=== PATIENT | female | born 1985 | race Two or more races ===

== ENCOUNTER 2024-10-08 00:55 | Observation (INO) | payer MEDICAID, OTHER ==
[~2024-10-08] VITALS: Ht 177.8 cm; Wt 94.7 kg
[2024-10-08] VITALS (7 sets, daily range): BP systolic 131–151; BP diastolic 69–92; PULSE 90–97; RESP 16–17; TEMP 98.5–98.7; O2SAT 98–100
--- NOTE | 2024-10-08 02:07 | ED.PDOC ---
History of Present Illness HPI Comments 39-year-old female at 35 weeks presents with chest pain, shortness of breath, and hypertension that began earlier today. Patient reports she went to [facility] where she was told she has preeclampsia. At that hospital she was given IV labetalol was discharged and told to come straight to [facility]. Patient denies any fever chills nausea vomiting diarrhea dysuria or polyuria. Chief Complaint: Flu like Time Seen by MD: 01:23 Reviewed Notes: Nurses Notes Allergies: Coded Allergies: NO KNOWN ALLERGIES (Unverified , 10/08/24) Information Source: Patient Mode of Arrival: Wheelchair Past Medical History PAST MEDICAL HISTORY: Denies Surgical History: Denies all surgeries STITCH BONDING MACHINE TENDER History: No Pertinent STITCH BONDING MACHINE TENDER History Respiratory: reports: shortness of breath Cardiovascular: reports: chest pain All Other Systems: Reviewed and Negative Physical Exam General Appearance: No Apparent Distress, Normal HEENT: Normal ENT Inspection, Pharynx Normal, TMs Normal Neck: Full Range of Motion, Non-Tender, Normal, Normal Inspection Respiratory: Chest Non-Tender, Lungs Clear, No Accessory Muscle Use, No Respiratory Distress, Normal Breath Sounds Cardiovascular: No Edema, No JVD, No Murmur, No Gallop, Normal Peripheral Pulses, Regular Rate/Rhythm Breast Exam: Deferred Gastrointestinal: No Organomegaly, Non Tender, No Pulsatile Mass, Normal Bowel Sounds, Soft, Other (Gravid abdomen) Genitalia: Deferred Pelvic: Deferred Rectal: Deferred Extremities: No calf tenderness, Normal capillary refill, Normal inspection, Normal range of motion, Non-tender, No pedal edema Musculoskeletal : Apperance: Normal Neurologic: Alert, cap inspector II-XII nml as Tested, No Motor Deficits, Normal Affect, Normal Mood, No Sensory Deficits Cerebellar Function: NOT DONE Reflexes: NOT DONE Skin: Dry, Normal Color, Warm Lymphatic: No Adenopathy Was a procedure done? Was a procedure done?: No Differential Dx Considerations may include: Preeclampsia, heart failure X-Ray, Labs, Meds, VS Vital Signs Date Time Temp Pulse Resp B/P (MAP) Pulse Ox O2 Delivery O2 Flow Rate FiO2 10/08/24 02:09 99.1 90 16 133/81 (98) 100 99.1 10/08/24 01:08 98.5 88 16 121/75 (90) 100 Lab Test 10/08/24 02:14 Range/Units White Blood Count 11.5 H 4.4-10.8 10^3/uL Red Blood Count 3.64 L 4.0-5.20 10^6/uL Hemoglobin 6.9 *L 12.2-16.2 g/dL Hematocrit 23.6 L 36.0-46.0 % Mean Corpuscular Volume 64.7 L 80.0-100.0 fL Mean Corpuscular Hemoglobin 18.8 L 28.0-32.0 pg Mean Corpuscular Hemoglobin Concent 29.1 L 32.0-36.0 g/dL Red Cell Distribution Width 20.5 H 11.8-14.3 % Platelet Count 302 140-450 10^3/uL Mean Platelet Volume 8.2 6.9-10.8 fL Neutrophils (%) (Auto) 74.5 37.0-80.0 % Lymphocytes (%) (Auto) 18.5 10.0-50.0 % Monocytes (%) (Auto) 5.5 0.0-12.0 % Eosinophils (%) (Auto) 0.8 0.0-7.0 % Basophils (%) (Auto) 0.7 0.0-2.0 % Neutrophils # (Auto) 8.6 1.6-8.6 10 ^3/uL Lymphocytes # (Auto) 2.1 0.4-5.4 10 ^3/uL Monocytes # (Auto) 0.6 0-1.3 10 ^3/uL Eosinophils # (Auto) 0.1 0-0.8 10 ^3/uL Basophils # (Auto) 0.1 0-0.2 10 ^3/uL Nucleated Red Blood Cells 1.3 % Platelet Estimate Adequate Hypochromasia (manual) Moderate Anisocytosis (manual) Slight Microcytosis Moderate Sodium Level 140 136-145 mmol/L Potassium Level 3.9 3.5-5.1 mmol/L Chloride Level 111 H 98-107 mmol/L Carbon Dioxide Level 20 20-31 mmol/L Anion Gap 9 5-15 Blood Urea Nitrogen 11 9-23 mg/dL Creatinine 0.67 0.550-1.02 mg/dL Glomerular Filtration Rate Calc 115 >90 mL/min BUN/Creatinine Ratio 16.4 10.0-20.0 Serum Glucose 91 74-106 mg/dL Calcium Level 9.0 8.7-10.4 mg/dL Total Bilirubin 0.4 0.2-1.0 mg/dL Aspartate Amino Transferase (AST) 10 L 13-40 U/L Alanine Aminotransferase (ALT) 10 7-40 U/L Alkaline Phosphatase 157 H 46-116 U/L Troponin I High Sensitivity 7 </=34 ng/L B-Type Natriuretic Peptide 232.41 0-100 pg/mL Total Protein 6.2 5.7-8.2 g/dL Albumin 3.9 3.2-4.8 g/dL Time of 1ST Reevaluation: 05:11 Reevaluation 1ST: Unchanged 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 Patient Education/Counseling: Diagnosis, Treatment Family Education/Counseling: No Family Present Departure 1 Departure Time of Disposition: 05:11 (Patient was cleared by me for transfer to our OB floor.) Impression: Primary Impression: Preeclampsia Qualified Codes: O14.93 - Unspecified pre-eclampsia, third trimester Additional Impressions: Chest pain Qualified Codes: R07.89 - Other chest pain Qualified Codes: Z3A.35 - 35 weeks gestation of Disposition: 02 SHORT TERM HOSPITAL Condition: Serious Critical Care Note Critical Care Time?: No Stability Stability form required: No Heart Score Heart Score: Heart Score Response (Comments) Value History N/A 0 EKG N/A 0 Age N/A 0 Risk Factors N/A 0 Troponin N/A 0 Total 0 LOLY GOTTLIEB MD Oct 08, 2024 02:07
[2024-10-08 02:37] LABS: Basophils # (auto) 0.1 10 ^3/uL (0-0.2); Hematocrit 23.6 % (36.0-46.0); Lymphocytes # (auto) 2.1 10 ^3/uL (0.4-5.4); Mean Corpuscular Hemoglobin 18.8 pg (28.0-32.0); Mean Corpuscular Hgb Conc. 29.1 g/dL (32.0-36.0); Mean Corpuscular Volume 64.7 fL (80.0-100.0); Monocytes # (auto) 0.6 10 ^3/uL (0-1.3); Monocytes % (auto) 5.5 % (0.0-12.0); Neutrophils # (auto) 8.6 10 ^3/uL (1.6-8.6); Red Blood Cells 3.64 10^6/uL (4.0-5.20)
[2024-10-08 02:39] LABS: Basophils % (auto) 0.7 % (0.0-2.0); Eosinophils # (auto) 0.1 10 ^3/uL (0-0.8); Eosinophils % (auto) 0.8 % (0.0-7.0); Lymphocytes % (auto) 18.5 % (10.0-50.0); Neutrophils % (auto) 74.5 % (37.0-80.0); Nucleated Red Blood Cells % 1.3 %; Platelet Count (auto) 302 10^3/uL (140-450); White Blood Cell 11.5 10^3/uL (4.4-10.8)
[2024-10-08 02:47] LABS: Red Cell Distribution Width 20.5 % (11.8-14.3)
[2024-10-08 02:48] LABS: Hemoglobin 6.9 g/dL (12.2-16.2)
[2024-10-08 02:57] LABS: Alanine Aminotransferase 10 U/L (7-40); Albumin 3.9 g/dL (3.2-4.8); Anion Gap 9 (5-15); BUN/Creatinine Ratio 16.4 (10.0-20.0); Bilirubin, Total 0.4 mg/dL (0.2-1.0); Blood Urea Nitrogen 11 mg/dL (9-23); Carbon Dioxide 20 mmol/L (20-31); Glucose 91 mg/dL (74-106); Potassium 3.9 mmol/L (3.5-5.1); Sodium 140 mmol/L (136-145); Total Protein 6.2 g/dL (5.7-8.2)
[2024-10-08 03:05] LABS: Alkaline Phosphatase 157 U/L (46-116); Aspartate Aminotransferase 10 U/L (13-40); Chloride 111 mmol/L (98-107)
[2024-10-08 04:18] LABS: Platelet Estimate Adequate
[2024-10-08 04:19] LABS: Anisocytosis Slight; Hypochromia Moderate
[2024-10-08 05:09] LABS: Amphetamine Screen, Urine Neg (NEGATIVE); Barbiturate Scree,Urine Neg (NEGATIVE); Benzodiazephine Screen, Urine Neg (NEGATIVE); Cocaine Screen, Urine Neg (NEGATIVE); Opiate Scree,Urine Neg (NEGATIVE)
[2024-10-08 05:10] LABS: Cannabinoid Screen, Urine Neg (NEGATIVE); Phencyclidine Screen, Urine Neg (NEGATIVE)
[2024-10-08 05:25] LABS: COVID19 ANTIGEN SOFIA FIA NEGATIVE (NEGATIVE); Rapid Influenza A Negative (Negative); Rapid Influenza B Negative (Negative)
[2024-10-08 05:33] LABS: Urine Bacteria FEW /hpf (None Seen); Urine Blood Negative /uL (Negative); Urine Clarity Clear (Clear); Urine Color Yellow (Yellow); Urine Mucus FEW (None Seen); Urine Protein, UAD 1+ (Negative); Urine Specific Gravity 1.026 (1.001-1.035); Urine Squamous Epithelial Cell FEW /hpf (<5); Urine Urobilinogen Normal (Negative); Urine WBC 15 /hpf (0 - 5)
[2024-10-08] MEDS: ceFAZolin 1GM/50ML 50 ML IV ONE (06:10)
[2024-10-08 06:34] LABS: Protein, Urine 83.4 mg/dL (1-14)
[2024-10-08 06:36] LABS: Creatinine, Urine 167.47 mg/dL (30.0-125.0); Urine Protein/Creatinine Ratio 0.5
--- NOTE | 2024-10-08 15:48 | DVHDS2 ---
Physician Discharge Progress N Final Diagnosis: pih ruled out anemia s/p blood transfusion Operations or Procedures: Operations or Procedures nst,sono,labs,blood transfusion Condition on Discharge: Good Disposition: Home Discharge Instructions: Diet: Regular Activity: No Restrictions, As Tolerated Medications: na Follow Up Care: Specialist: 2d Discharge Statement: "Patient was advised to return to the ER or call 911 if any headaches, dizziness, shortness of breath, chest pain, abdominal pain, bleeding, fevers, or worsening of medical condition. Patient was counseled about treatment plan, medications, possible side effects, patientverbalized understanding. All questions were answered to the best of my ability. This discharge took greater then 30 minutes in planning, reviewing documentation, counseling the patient, and discussing with other team members." NIKHIL POSADAS DO Oct 08, 2024 15:48
[2024-10-09] MEDS ORDERED: FERR1TAB36 PO (05:29)
== END 2024-10-08 14:45 | disposition home or self-care (01) ==
LOC: ER 00:55 → LDRP 02:15 → EDBD 02:15
PROVIDERS: ADMIT Obstetrics & Gynecology; ATTEND Obstetrics & Gynecology
DX: O99.013 Anemia complicating pregnancy, third trimester (principal); Z20.822 Contact with and (suspected) exposure to COVID-19; D64.9 Anemia, unspecified; O14.93 Unspecified pre-eclampsia, third trimester; O13.3 Gestational [pregnancy-induced] hypertension without significant proteinuria, third trimester; O26.893 Other specified pregnancy related conditions, third trimester; R07.89 Other chest pain; R06.02 Shortness of breath; Z98.890 Other specified postprocedural states; Z79.899 Other long term (current) drug therapy; Z3A.35 35 weeks gestation of pregnancy
CPT/HCPCS: 36415; 36430; 59025; 80053; 80307; 81001; 82570; 83880; 84156; 84484; 85025; 86850; 86900; 86901; 86920; 87426; 87804; 94760; 96361; 96365; 99284; G0378; J0690; J7030; J7120; P9016; 96360

== ENCOUNTER 2024-10-09 00:01 | Observation (INO) | payer MEDICAID ==
[~2024-10-09] VITALS: Ht 167.6 cm; Wt 95.3 kg
--- NOTE | 2024-10-09 00:24 | ED.PDOC ---
History of Present Illness HPI Comments 39-year-old female with PMHx HTN, Anemia brought in by EMS presents with a chief complaint of chest pain and SOB. Patient reports that she is currently 35 weeks , . Patient mentions that she is feeling chest pain in her sternal region, non-radiating, and describes as tightness, and reports that it feels difficult to breath. Patient was hypertensive per EMS at 165/95 on arrival to ER. Patient appears pale in color. Patient mentions that she sees Dr. Goins as her REFINING SUPERVISOR and last saw her today. Patient reports that she so far has not had any issues with her nor her previous pregnancies. Chief Complaint: Chest Pain Time Seen by MD: 00:18 Reviewed Notes: Medications, Allergies Allergies: Coded Allergies: Avocado (Verified Allergy, Severe, ANAPHYLACTIC REACTION AND ANGIOEDEMA, 10/08/24) Latex (Verified Allergy, Mild, RASH, 10/08/24) Home Meds No Active Prescriptions or Reported Meds Information Source: Patient Mode of Arrival: EMS Severity: Moderate Timing: Hours Duration: Since onset Prehospital treatment: None Past Medical History PAST MEDICAL HISTORY: Anemia, HTN Surgical History: Denies all surgeries FARM REPORTER History: No Pertinent FARM REPORTER History Family History Family History: Reviewed,noncontributory to illness Social History Smoker: Non-Smoker Alcohol: Denies ETOH Use Drugs: Denies Drug Use Lives In: Home Constitutional: denies: chills, diaphoresis, fatigue, fever, malaise, sweats, weakness, others EENTM: denies: blurred vision, double vision, ear bleeding, ear discharge, ear drainage, ear pain, ear ringing, eye pain, eye redness, hearing loss, mouth pain, mouth swelling, nasal discharge, nose bleeding, nose congestion, nose pain, photophobia, tearing, throat pain, throat swelling, voice changes, others Respiratory: reports: shortness of breath; denies: cough, hemoptysis, orthopnea, SOB at rest, SOB with excertion, stridor, wheezing, others Cardiovascular: reports: chest pain; denies: dizzy spells, diaphoresis, Dyspnea on exertion, edema, irregular heart beat, left arm pain, lightheadedness, palpitations, PND, syncope, others Gastrointestinal: denies: abdomen distended, abdominal pain, blood streaked bowels, constipated, diarrhea, dysphagia, difficulty swallowing, hematemesis, melena, nausea, poor appetite, poor fluid intake, rectal bleeding, rectal pain, vomiting, others Genitourinary: reports: ; denies: abnormal vagina bleeding, burning, dyspareunia, dysuria, flank pain, frequency, hematuria, incontinence, pain, vagina discharge, urgency, others Neurological: denies: dizziness, fainting, headache, left sided numbness, left sided weakness, numbness, paresthesia, pre-existing deficit, right sided numbness, right sided weakness, seizure, speech problems, tingling, tremors, weakness, others Musculoskeletal: denies: back pain, gout, joint pain, joint swelling, muscle pain, muscle stiffness, neck pain, others Integumetry: denies: bruises, change in color, change in hair/nails, dryness, laceration, lesions, lumps, rash, wounds, others Allergic/Immunocompromised: denies: Difficulty Healing, Frequent Infections, Hives, Itching, others Hematologic/Lymphatic: denies: anemia, blood clots, easy bleeding, easy bruising, swollen glands, others Endocrine: denies: excessive hunger, excessive sweating, excessive thirst, excessive urination, flushing, intolerance to cold, intolerance to heat, unexplained weight gain, unexplained weight loss, others Psychiatric: denies: anxiety, bipolar disorder, depression, hopeless, panic disorder, schizophrenia, sleepless, suicidal, others All Other Systems: Reviewed and Negative Physical Exam General Appearance: Mild Distress, Normal, Other (PALE IN COLOR) HEENT: Normal ENT Inspection, Pharynx Normal, TMs Normal Neck: Full Range of Motion, Non-Tender, Normal, Normal Inspection Respiratory: Chest Non-Tender, Lungs Clear, No Accessory Muscle Use, No Respiratory Distress, Normal Breath Sounds Cardiovascular: No Edema, No JVD, No Murmur, No Gallop, Normal Peripheral Pulses, Regular Rate/Rhythm Breast Exam: Deferred Gastrointestinal: Other (ABDOMEN GRAVID) Genitalia: Deferred Pelvic: Deferred Rectal: Deferred Extremities: No calf tenderness, Normal capillary refill, Normal inspection, Normal range of motion, Non-tender, No pedal edema Musculoskeletal : Apperance: Normal Neurologic: Alert, brick grader II-XII nml as Tested, No Motor Deficits, Normal Affect, Normal Mood, No Sensory Deficits Cerebellar Function: Normal Reflexes: Normal Skin: Dry, Normal Color, Warm Lymphatic: No Adenopathy Was a procedure done? Was a procedure done?: No Differential Dx Considerations may include: preeclampsia, eccalmpsia, PE, acs, anxiety, anemia, ptx, HELLP X-Ray, Labs, Meds, VS Vital Signs Date Time Temp Pulse Resp B/P (MAP) Pulse Ox O2 Delivery O2 Flow Rate FiO2 10/09/24 00:17 98.7 105 16 165/95 (118) 98 Lab Test 10/09/24 00:51 Range/Units White Blood Count 12.9 H 4.4-10.8 10^3/uL Red Blood Count 4.14 4.0-5.20 10^6/uL Hemoglobin 8.8 #L 12.2-16.2 g/dL Hematocrit 28.7 #L 36.0-46.0 % Mean Corpuscular Volume 69.2 #L 80.0-100.0 fL Mean Corpuscular Hemoglobin 21.4 L 28.0-32.0 pg Mean Corpuscular Hemoglobin Concent 30.9 L 32.0-36.0 g/dL Red Cell Distribution Width 26.5 H 11.8-14.3 % Platelet Count 259 140-450 10^3/uL Mean Platelet Volume 7.3 6.9-10.8 fL Neutrophils (%) (Auto) 77.7 37.0-80.0 % Lymphocytes (%) (Auto) 15.2 10.0-50.0 % Monocytes (%) (Auto) 5.8 0.0-12.0 % Eosinophils (%) (Auto) 0.8 0.0-7.0 % Basophils (%) (Auto) 0.5 0.0-2.0 % Neutrophils # (Auto) 10.0 H 1.6-8.6 10 ^3/uL Lymphocytes # (Auto) 2.0 0.4-5.4 10 ^3/uL Monocytes # (Auto) 0.7 0-1.3 10 ^3/uL Eosinophils # (Auto) 0.1 0-0.8 10 ^3/uL Basophils # (Auto) 0.1 0-0.2 10 ^3/uL Nucleated Red Blood Cells 0.6 % Prothrombin Time Pending Prothrombin Time INR Pending Activated Partial Thromboplast Time Pending Sodium Level Pending Potassium Level Pending Chloride Level Pending Carbon Dioxide Level Pending Anion Gap Pending Blood Urea Nitrogen Pending Creatinine Pending Glomerular Filtration Rate Calc Pending BUN/Creatinine Ratio Pending Serum Glucose Pending Calcium Level Pending Magnesium Lvl (Mg Sulfate Therapy) Pending Total Bilirubin Pending Aspartate Amino Transferase (AST) Pending Alanine Aminotransferase (ALT) Pending Alkaline Phosphatase Pending Troponin I High Sensitivity Pending Total Protein Pending Albumin Pending Time of 1ST Reevaluation: 00:48 Reevaluation 1ST: Unchanged Consultation: account executive agribusiness (i consulted L/D charge and Dr Goins) Patient Education/Counseling: Diagnosis, Treatment, Prognosis Family Education/Counseling: No Family Present Additional Information i reviewed the medical record from earlier and reviewed the lab results from yesterday. i also spoke to EMT, communicated with medical personnel about treatments, and consulted L/D and Dr Goins. pt will be transferred to L/d Departure 1 Departure Time of Disposition: 01:08 Impression: Primary Impression: Preeclampsia Qualified Codes: O14.93 - Unspecified pre-eclampsia, third trimester Disposition: 02 SHORT TERM HOSPITAL Admit to: l/d Condition: Critical e-Prescriptions No Active Prescriptions or Reported Meds Discharged With: Self Critical Care Note Critical Care Time?: Yes (45 min-critical care time only) Critical care comment: due to concerns for patient's condition suddenly deteriorating, the care required my highest level of attention and readiness to intervene. i assessed her condition, ordered the proper tests and treatments, communicated with medical personnel and consultants, and reassessed her. i reviewed her test results, past medical records, assessed her for responsiveness and stability, and formulated a treatment plan. total critical care time does not include any procedures Stability Stability form required: No I personally scribed for TAHIR RUIZ MD ([email or web address]) on 10/09/24 at 00:24. Electronically submitted by Holger Sterling ([email or web address]). TAHIR RUIZ MD Oct 09, 2024 00:24
[2024-10-09] MEDS ORDERED: MAGNESIUM SULFATE 40MG/ML 1,000 ML IV SCH (00:45)
[2024-10-09] MEDS: LABETALOL HCL 20 MG/4 ML VL IV ONE ×2 (00:45→04:54)
[2024-10-09 01:01] LABS: Basophils # (auto) 0.1 10 ^3/uL (0-0.2); Basophils % (auto) 0.5 % (0.0-2.0); Eosinophils # (auto) 0.1 10 ^3/uL (0-0.8); Eosinophils % (auto) 0.8 % (0.0-7.0); Hematocrit 28.7 % (36.0-46.0); Hemoglobin 8.8 g/dL (12.2-16.2); Lymphocytes % (auto) 15.2 % (10.0-50.0); Mean Corpuscular Hemoglobin 21.4 pg (28.0-32.0); Mean Corpuscular Hgb Conc. 30.9 g/dL (32.0-36.0); Mean Corpuscular Volume 69.2 fL (80.0-100.0); Monocytes # (auto) 0.7 10 ^3/uL (0-1.3); Monocytes % (auto) 5.8 % (0.0-12.0); Neutrophils % (auto) 77.7 % (37.0-80.0); Nucleated Red Blood Cells % 0.6 %; Platelet Count (auto) 259 10^3/uL (140-450); Red Blood Cells 4.14 10^6/uL (4.0-5.20); White Blood Cell 12.9 10^3/uL (4.4-10.8)
[2024-10-09 01:02] LABS: Red Cell Distribution Width 26.5 % (11.8-14.3)
[2024-10-09 01:18] LABS: INR 0.9 (0.9-1.15); Partial Thromboplastin Time 25.6 SEC (24.5-34.5); Prothrombin Time 9.6 sec (9.3-11.8)
[2024-10-09 01:19] LABS: Alanine Aminotransferase 9 U/L (7-40); Albumin 3.8 g/dL (3.2-4.8); Alkaline Phosphatase 149 U/L (46-116); Anion Gap 9 (5-15); Aspartate Aminotransferase 11 U/L (13-40); BUN/Creatinine Ratio 16.9 (10.0-20.0); Bilirubin, Total 0.5 mg/dL (0.2-1.0); Blood Urea Nitrogen 11 mg/dL (9-23); Carbon Dioxide 20 mmol/L (20-31); Chloride 110 mmol/L (98-107); Glucose 83 mg/dL (74-106); Sodium 139 mmol/L (136-145)
[2024-10-09] MEDS ORDERED: FUROSEMIDE 40 MG/4 ML VIAL IV ONE (01:30)
--- NOTE | 2024-10-09 01:41 | DVH ---
EXAM: XY CHEST PORTABLE CLINICAL HISTORY: cp TECHNIQUE: Single AP view of the chest WID: COMPARISON: None FINDINGS: Lines and tubes: None Chest: Upper limits of Normal-sized heart. Pulmonary vascular congestion. Interstitial prominence of the pk ngs No pleural effusion, pneumothorax, or consolidation. The osseous structures are grossly intact. IMPRESSION: Pulmonary vascular congestion and interstitial edema.
[2024-10-09] MEDS: IOHEXOL 350 MG/ML 100ML IJ ONE (02:15)
[2024-10-09] MEDS ORDERED: hydrALAZINE HCL 20 MG/ML VL IV ONE (02:34)
[2024-10-09] MEDS: FUROSEMIDE 40 MG/4 ML VIAL IV ONE (03:14)
[2024-10-09] MEDS: FUROSEMIDE 20 MG/2 ML VIAL IV ONE (03:14)
[2024-10-09] MEDS: MAGNESIUM SULFATE 1GM/100ML 100 ML IV SCH (03:18)
[2024-10-09] MEDS: hydrALAZINE HCL 20 MG/ML VL IV PRN (03:26)
[2024-10-09 03:29] LABS: Urine Bacteria None Seen /hpf (None Seen)
--- NOTE | 2024-10-09 03:45 | DVH ---
Examination: CTACH CLINICAL INDICATION: r/o PE. COMPARISON: None. CONTRAST USED: Intravenous. TECHNIQUE: Following standard protocol, axial images were obtained from the thoracic inlet to the up per abdomen after administration of intravenous contrast material with timing optimized for visualiza tion of the pulmonary arterial tree. Additional reformatted sequences were reviewed. The CT scan was conducted according to ALARA (As Low as Reasonably Achievable) principles, with multiplanar reconstr uctions obtained. LIMITATIONS: Distal pulmonary arterial structures including subsegmental branches and beyond are not well visualiz ed. FINDINGS: The main pulmonary trunk, right and left main pulmonary arteries are normal in course and caliber wit h normal contrast opacification. The visualized descending and interlobar pulmonary arteries show normal contrast opacification. There is no obvious intraluminal filling defect seen. Mediastinum, heart and great vessels: The trachea and the mainstem bronchi are normal. No significant mediastinal lymphadenopathy is detected. Cardiac size is within normal limits. No evidence of aneurysmal dilatation of the ascending aorta. The mediastinal vasculature is unremarkable. No evidence of pericardial effusion. Lungs and pleura: Subtle mosaic attenuation in both lungs, due to small vessel / airway disease. Atelectatic bands and / or scarring in the right middle pulmonary lobe. The rest of the pulmonary parenchyma does not show any significant abnormality. Mild bilateral pleural effusions. Osseous structures: Mild degenerative changes in the visualized thoracolumbar vertebrae noted in the form of marginal ost eophytes in visualized vertebrae. Ribs are unremarkable. IMPRESSION: 1. No evidence of pulmonary thromboembolism. 2. Mild bilateral pleural effusions. 3. Subtle mosaic attenuation in both lungs, due to small vessel / airway disease. 4. Chronic and / or ancillary findings as described above. Electronically Signed 10/09/2024 03:44 Nito Maldonado
[2024-10-09] MEDS ORDERED: LABETALOL HCL 20 MG/4 ML VL IV ONE (04:00)
[2024-10-09 04:08] LABS: Urine Blood Negative /uL (Negative); Urine Clarity Clear (Clear); Urine Color Light-Yellow (Yellow); Urine Mucus FEW (None Seen); Urine Protein, UAD TRACE (Negative); Urine Specific Gravity 1.019 (1.001-1.035); Urine Urobilinogen Normal (Negative); Urine WBC 2 /hpf (0 - 5); Urine pH 5.5 (5.0-9.0)
--- NOTE | 2024-10-09 04:48 | ED.PDOC ---
Departure 1 Departure Time of Disposition: 04:48 (Patient likely with preeclampsia. Patient accepted to [facility] has a transfer.) Impression: Primary Impression: Preeclampsia Qualified Codes: O14.93 - Unspecified pre-eclampsia, third trimester Additional Impressions: CHF (congestive heart failure) Qualified Codes: I50.9 - Heart failure, unspecified Anemia Qualified Codes: D64.9 - Anemia, unspecified Disposition: 02 SHORT TERM HOSPITAL Condition: Critical e-Prescriptions No Active Prescriptions or Reported Meds Discharged With: Self LOLY GOTTLIEB MD Oct 09, 2024 04:48
[2024-10-09] MEDS ORDERED: FERR1TAB36 PO (05:29)
--- NOTE | 2024-10-09 05:51 | ECG ---
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
[2024-10-09 06:08] VITALS: PULSE 92; RESP 18; O2SAT 98
[2024-10-09 06:09] VITALS: BP 135/82; PULSE 92; RESP 18; TEMP 98.2; O2SAT 98
--- NOTE | 2024-10-09 07:05 | ECG ---
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
[2024-10-09 08:07] LABS: Protein, Urine 54.8 mg/dL (1-14)
[2024-10-09 08:09] LABS: Creatinine, Urine 79.13 mg/dL (30.0-125.0); Urine Protein/Creatinine Ratio 0.69
--- NOTE | 2024-10-10 08:23 | DVHDS2 ---
Physician Discharge Progress N Final Diagnosis: pih,ama chest pain,sob Operations or Procedures: Operations or Procedures nst,sono,labs,to er for eval of sob and cp Condition on Discharge: Undetermined Disposition: Home Discharge Instructions: Diet: Regular Activity: No Restrictions, As Tolerated Medications: to er Follow Up Care: Specialist: to er Discharge Statement: "Patient was advised to return to the ER or call 911 if any headaches, dizziness, shortness of breath, chest pain, abdominal pain, bleeding, fevers, or worsening of medical condition. Patient was counseled about treatment plan, medications, possible side effects, patientverbalized understanding. All questions were answered to the best of my ability. This discharge took greater then 30 minutes in planning, reviewing documentation, counseling the patient, and discussing with other team members." NIKHIL POSADAS DO Oct 10, 2024 08:23
== END 2024-10-09 02:35 | disposition home or self-care (01) ==
LOC: EDBD 00:01 → ER 00:01 → LDRP 01:19
PROVIDERS: ADMIT Obstetrics & Gynecology; ATTEND Obstetrics & Gynecology
DX: O13.3 Gestational [pregnancy-induced] hypertension without significant proteinuria, third trimester (principal); O09.523 Supervision of elderly multigravida, third trimester; O99.413 Diseases of the circulatory system complicating pregnancy, third trimester; I50.9 Heart failure, unspecified; O99.013 Anemia complicating pregnancy, third trimester; D64.9 Anemia, unspecified; O14.93 Unspecified pre-eclampsia, third trimester; O26.893 Other specified pregnancy related conditions, third trimester; R06.02 Shortness of breath; R07.89 Other chest pain; Z91.040 Latex allergy status; Z91.018 Allergy to other foods; Z79.899 Other long term (current) drug therapy
CPT/HCPCS: 36415; 59025; 71045; 71275; 80053; 81001; 82570; 83735; 84156; 84484; 84550; 85025; 85610; 85730; 93005; 94760; 96365; 96375; 99291; G0378; J0360; J1940; J3475; Q9967; 96374